=== PATIENT | female | born 1995 | race Caucasian/White ===

== ENCOUNTER 2022-08-05 07:16 | Day surgery (SDC) | payer MEDICAID ==
[~2022-08-05] VITALS: Ht 160 cm; Wt 63.5 kg
[2022-08-05] MEDS ORDERED: MEPERIDINE 100 MG INJ. 100 MG/ML VIAL ONE (08:10)
[2022-08-05] MEDS ORDERED: MIDAZOLAM HCL 5 MG/5 ML VIAL ONE (08:10)
[2022-08-05 08:35] LABS: HCG,QUAL RESULT NEGATIVE (NEGATIVE)
[2022-08-05] MEDS ORDERED: SIMETHICONE 40 MG/0.6 ML ML ONE (08:53)
[2022-08-05 11:13] VITALS: O2SAT 98
[2022-08-05 13:09] VITALS: PULSE 98; RESP 17; TEMP 98.2
[2022-08-05 16:16] VITALS: BP_SYST 133
== END 2022-08-05 10:00 | disposition home or self-care (01) ==
LOC: SDS 07:16 → SMU 07:24 → SDS 10:00
PROVIDERS: ATTEND Internal Medicine Gastroenterology
DX: R10.13 Epigastric pain (principal); K29.50 Unspecified chronic gastritis without bleeding; K29.80 Duodenitis without bleeding
CPT/HCPCS: 43239; 87081; 84703; 36415; 88305; 88312; 88313; 99152; G0378; J2250; J2175